=== PATIENT | female | born 1995 | race Asian ===

== ENCOUNTER 2016-03-23 23:32 | Emergency (ER) | payer OTHER | END 2016-03-24 02:56 | disposition home or self-care (01) | DX: S93.411A Sprain of calcaneofibular ligament of right ankle, initial encounter (principal); X50.1XXA Overexertion from prolonged static or awkward postures, initial encounter; Y93.01 Activity, walking, marching and hiking; Y92.009 Unspecified place in unspecified non-institutional (private) residence as the place of occurrence of the external cause; Y99.8 Other external cause status ==